=== PATIENT | female | born 1995 | race Caucasian/White ===

== ENCOUNTER 2024-04-05 04:05 | Observation (INO) ==
[2024-04-05] MEDS: Droperidol 5 MG/2 ML 2 ML VIAL IV ONE (04:50)
[2024-04-05] MEDS: Lactated Ringers 1000 ml BAG 1,000 ML IV ONE ×4 (04:52→21:42)
[2024-04-05 04:55] LABS: ABS Monocytes 0.6 10^3/uL (0.0-0.9); ABS Neutrophils 9.3 10^3/uL (1.5-7.6); Eosinophil % 0.1 %; Hematocrit 40.9 % (35-45); Hemoglobin 13.9 g/dL (11.5-14.3); Lymphocyte % 16.6 %; Mean Corpuscular Hemoglobin 28.9 pg (27-33); Mean Platelet Volume 8.3 fL (7.5-11.2); Platelet Count 406 10^3/uL (150-450); Red Blood Count 4.81 10^6/uL (3.63-4.92); Red Cell Distribution Width 16.4 % (12-17); White Blood Count 11.9 10^3/uL (3.8-11.8)
[2024-04-05 05:11] LABS: Urine Appearance Clear; Urine Bilirubin Negative (Negative); Urine Blood Negative (Negative); Urine Color Light-Yellow; Urine Glucose Negative (Negative); Urine Ketones Trace (Negative); Urine Nitrite Negative (Negative); Urine Protein Negative (Negative); Urine Specific Gravity 1.015 (1.002-1.030); Urine Urobilinogen Negative (Negative); Urine pH 7.5 (5.0-8.0)
[2024-04-05 05:36] LABS: ALT 20 U/L (7-52); AST 22 U/L (13-39); Albumin 4.7 g/dL (3.2-5.2); Albumin/Globulin Ratio 1.9 (1-3); Alkaline Phosphatase 55 U/L (35-149); Anion Gap 14 mmol/L (2-16); Blood Urea Nitrogen 10 mg/dL (6-24); CO2 Carbon Dioxide 21 mmol/L (22-32); Calcium 9.6 mg/dL (8.6-10.3); Chloride 103 mmol/L (101-111); Creatinine, Serum 0.76 mg/dL (0.51-0.95); Globulin 2.5 g/dL (2-4); Glucose 116 mg/dL (70-100); Lipase 37 U/L (11.0-82.0); Magnesium 1.7 mg/dL (1.9-2.7); Sodium 138 mmol/L (135-145); Total Bilirubin 0.4 mg/dL (0.2-1.0); Total Protein 7.2 g/dL (6.4-8.9); eGFR CKD-EPI 108.7 (>60)
[2024-04-05] MEDS: diazePAM INJ CARPUJECT 5 MG/ML SYRINGE IV ONE ×2 (05:45→09:56)
[2024-04-05] MEDS: Magnesium Sulfate IV 1GM/100ML 1 GM/100 ML BAG IV ONE (05:54)
[2024-04-05 06:52] LABS: Alcohol, S < 13 mg/dL (<13)
[2024-04-05] MEDS: Metoclopramide 5 MG/ML VIAL (10 mg) IV ONE (07:22)
[2024-04-05 07:50] LABS: Urine Benzodiazepine Screen None Detected (None Detect); Urine Cannabinoids Screen Presumptive Positive (None Detect); Urine Opiates Screen None Detected (None Detect)
[2024-04-05] MEDS: Famotidine IV 10 MG/ML 2 ml VIAL (20 mg) IV SLOW PU ONE (08:35)
[2024-04-05] MEDS: Morphine 2 MG/ML SYRINGE IV ONE (08:35)
[2024-04-05] MEDS: Al Hydrox/Mg Hydrox/Simet LIQ 30 ML UDC PO ONE (08:35)
[2024-04-05] MEDS: Ondansetron 4 mg VIAL 2 MG/ML 2 ml VIAL IV ONE (09:54)
[2024-04-05] MEDS: Pantoprazole VIAL 40 MG VIAL IV SCH (11:00)
[2024-04-05] MEDS: Morphine 2 MG/ML SYRINGE IV PRN (13:44)
[2024-04-05] MEDS: Lactated Ringers 1000 ml BAG 1,000 ML IV SCH (14:32)
[2024-04-05] MEDS: Ondansetron 4 mg VIAL 2 MG/ML 2 ml VIAL IV PRN (17:17)
[2024-04-06 06:22] LABS: ABS Lymphocytes 2.5 10^3/uL (1.0-4.8); ABS Monocytes 0.6 10^3/uL (0.0-0.9); ABS Neutrophils 2.2 10^3/uL (1.5-7.6); ABS Nucleated RBC 0.01 10^3/ul; Eosinophil % 0.4 %; Hematocrit 37.7 % (35-45); Hemoglobin 12.8 g/dL (11.5-14.3); Mean Corpuscular Hemoglobin 29.4 pg (27-33); Mean Corpuscular Volume 86.3 fL (80-97); Mean Platelet Volume 8.2 fL (7.5-11.2); Nucleated Red Blood Cells % 0.1 %/100WBC (0.0-0.8); Platelet Count 243 10^3/uL (150-450); Red Blood Count 4.37 10^6/uL (3.63-4.92); Red Cell Distribution Width 16.7 % (12-17); White Blood Count 5.4 10^3/uL (3.8-11.8)
[2024-04-06 06:34] VITALS: BP 123/86
[2024-04-06 07:26] LABS: Calcium 8.6 mg/dL (8.6-10.3); Creatinine, Serum 0.68 mg/dL (0.51-0.95); Magnesium 1.8 mg/dL (1.9-2.7); Potassium 3.8 mmol/L (3.5-5.0); eGFR CKD-EPI 120.8 (>60)
[2024-04-06] MEDS: Magnesium Sulfate 2 gm BAG 2 GM/50 ML BAG IVPB ONE (07:50)
[2024-04-07 23:37] LABS: Tissue Transglutaminase IgA Ab 28.9 U/mL
[2024-04-08] LABS: Immunoglobulin A 193 mg/dL (61 - 356)
== END 2024-04-06 12:45 | disposition home or self-care (01) ==
LOC: ED 04:05 → EDHOLD 04:05 → SUATTDRO 10:43 → MED 17:17
PROVIDERS: ADMIT Hospitalist; ATTEND Student in an Organized Health Care Education/Training Program

== ENCOUNTER 2024-08-17 08:27 | Observation (INO) ==
[2024-08-17 09:22] LABS: ABS Basophils 0.1 10^3/uL (0.0-0.1); ABS Lymphocytes 2.3 10^3/uL (1.0-4.8); ABS Monocytes 1.1 10^3/uL (0.0-0.9); ABS Neutrophils 17.5 10^3/uL (1.5-7.6); Eosinophil % 0.1 %; Hematocrit 44.2 % (35-45); Hemoglobin 14.6 g/dL (11.5-14.3); Lymphocyte % 11.2 %; Mean Corpuscular Hemoglobin 29.3 pg (27-33); Mean Corpuscular Hgb Conc 33.1 g/dL (31-36); Mean Corpuscular Volume 88.4 fL (80-97); Mean Platelet Volume 8.2 fL (7.5-11.2); Platelet Count 301 10^3/uL (150-450); Red Cell Distribution Width 16.5 % (12-17)
[2024-08-17 09:25] LABS: Urine Appearance Clear; Urine Bilirubin Negative (Negative); Urine Blood Negative (Negative); Urine Color Colorless; Urine Glucose Negative (Negative); Urine Ketones Negative (Negative); Urine Nitrite Negative (Negative); Urine Protein Negative (Negative); Urine Specific Gravity 1.005 (1.002-1.030); Urine Urobilinogen Negative (Negative); Urine pH 6.5 (5.0-8.0)
[2024-08-17] MEDS ORDERED: Ondansetron 4 mg VIAL 2 MG/ML 2 ml VIAL ONE ×3 (09:50→19:12)
[2024-08-17] MEDS: Ondansetron 4 mg VIAL 2 MG/ML 2 ml VIAL IV ONE (09:51)
[2024-08-17] MEDS: NS 0.9% 1000 ml BAG 1,000 ML IV ONE (09:53)
[2024-08-17 09:55] LABS: ALT 14 U/L (7-52); AST 18 U/L (13-39); Albumin 4.4 g/dL (3.2-5.2); Albumin/Globulin Ratio 1.7 (1-3); Alkaline Phosphatase 70 U/L (35-149); Anion Gap 11 mmol/L (2-16); Blood Urea Nitrogen 9 mg/dL (6-24); C Reactive Protein 18.06 mg/L (<8.01); CO2 Carbon Dioxide 21 mmol/L (22-32); Calcium 9.2 mg/dL (8.6-10.3); Chloride 102 mmol/L (101-111); Creatinine, Serum 0.67 mg/dL (0.51-0.95); Globulin 2.6 g/dL (2-4); Glucose 103 mg/dL (70-100); Lipase 18 U/L (11.0-82.0); Potassium 4.4 mmol/L (3.5-5.0); Sodium 134 mmol/L (135-145); Total Bilirubin 0.7 mg/dL (0.2-1.0); eGFR CKD-EPI 121.3 (>60)
[2024-08-17 10:00] LABS: HCG Pregnancy < 0.60 mIU/mL
[2024-08-17] MEDS: cefTRIAXone 1 gm/50 mL D5W 1 GM/50 ML BAG IV ONE (11:18)
[2024-08-17] MEDS: metroNIDAZOLE IV 500 MG/100ML 500 MG/100 ML BAG IVPB ONE (11:20)
[2024-08-17] MEDS: Lactated Ringers 1000 ml BAG 1,000 ML IV SCH (13:03)
[2024-08-17] MEDS: Ondansetron 4 mg VIAL 2 MG/ML 2 ml VIAL IV PRN ×2 (13:43→19:12)
[2024-08-17] MEDS ORDERED: Naloxone 0.4 mg VIAL 0.4 mg/ml 1 ml VIAL IV PRN (16:01)
[2024-08-17] MEDS ORDERED: Buffered Lidocaine 1% SYRIN 1 ml INTRADERM ONE (16:01)
[2024-08-17] MEDS ORDERED: Scopolamine 1 mg/72hr PATCH TRANSDERM ONE (16:01)
[2024-08-17] MEDS ORDERED: Metoclopramide 5 MG/ML VIAL (10 mg) ONE ×2 (16:04→21:15)
[2024-08-17] MEDS ORDERED: Bupivacaine 0.25% SDV PF 10 ML VIAL INJ ONE (16:27)
[2024-08-17] MEDS ORDERED: Rocuronium 50 mg VIAL 10 mg/ml 5 ml VIAL (50 mg) ONE (16:52)
[2024-08-17] MEDS ORDERED: Lidocaine 2% PF 5 ML VIAL ONE (17:00)
[2024-08-17] MEDS ORDERED: Midazolam 2 mg/2 ml VIAL 1 mg/ml 2 ml VIAL (2 mg) ONE (17:00)
[2024-08-17] MEDS ORDERED: NS 0.45% 1000 ml BAG 1,000 ML IV SCH (17:00)
[2024-08-17] MEDS ORDERED: fentaNYL 100 mcg/2 ml 50 MCG/ML VIAL ONE ×5 (17:00→19:31)
[2024-08-17] MEDS ORDERED: Propofol 10 MG/ML 20 ML BTL ONE (17:00)
[2024-08-17] MEDS ORDERED: Dexamethasone IV 4 MG/ML VIAL 1 ml VIAL ONE (17:22)
[2024-08-17] MEDS ORDERED: Sevoflurane BOTTLE ONE (17:41)
[2024-08-17] MEDS: fentaNYL 100 mcg/2 ml 50 MCG/ML VIAL IV PRN (18:21)
[2024-08-17] MEDS: Metoclopramide 5 MG/ML VIAL (10 mg) IV ONE (21:18)
[2024-08-17] MEDS: Lidocaine PATCH 5% PATCH TRANSDERM ONE (21:29)
[2024-08-17] MEDS: Magnesium Sulfate 2 gm BAG 2 GM/50 ML BAG IVPB ONE (21:30)
[2024-08-17] MEDS ORDERED: HYDROmorphone 1 MG/1 ML SYRINGE IV SLOW PU PRN (21:57)
[2024-08-17] MEDS ORDERED: Ondansetron 4 mg VIAL 2 MG/ML 2 ml VIAL IV PRN (21:57)
[2024-08-17] MEDS ORDERED: Calcium Carb (TUMS) 500 mg CHEW TAB PO PRN (22:01)
[2024-08-17] MEDS ORDERED: HYDROmorphone 1 MG/1 ML SYRINGE ONE (22:12)
[2024-08-17] MEDS: HYDROmorphone 1 MG/1 ML SYRINGE IV SLOW PU SCH (22:20)
[2024-08-18] MEDS ORDERED: oxyCODONE/Acetamin 5/325 mg TAB ONE (00:22)
[2024-08-18] MEDS: oxyCODONE/Acetamin 5/325 mg TAB PO PRN (00:23)
[2024-08-18] MEDS: Iohexol 300 (CONTRAST) 10 ML SDV IV ONE (06:53)
[2024-08-18 07:26] VITALS: BP 123/65
[2024-08-18] MEDS: Lactated Ringers 1000 ml BAG 1,000 ML IV SCH (07:47)
== END 2024-08-18 10:30 | disposition home or self-care (01) ==
LOC: ED 08:27 → OR 16:14 → SSU 16:14 → OR 18:42
PROVIDERS: ADMIT Surgery; ATTEND Surgery